=== PATIENT | female | born 1950 | race Caucasian/White ===

== ENCOUNTER 2016-06-12 17:46 | Inpatient (IN) | payer OTHER ==
[2016-06-12] MEDS ORDERED: Albuterol/Ipratropium Neb 3 ML NEB NEB ONE (18:08)
[2016-06-12] MEDS ORDERED: METHYLPREDNISOLONE 125 MG/2 ML VIAL IV ONE (18:08)
[2016-06-12 18:17] LABS: AUTOMATED BASOPHIL 0.4 % (0-2); AUTOMATED LYMPH 13.4 % (17-44); AUTOMATED MONOCYTE 7.3 % (3-10); AUTOMATED NEUTROPHIL 78.9 % (45-76); MPV 7.5 fL (7.4-10.4)
[2016-06-12 18:21] LABS: ALLEN'S TEST PASS; BEb 1.3 (+/- 2); TCO2 26.1 MMOL/L (23-27)
[2016-06-12 18:22] LABS: ABG Draw Site Left Radial; ABG Draw Tech SI
[2016-06-12] MEDS ORDERED: AZITHROMYCIN 500 MG in D5W 250 ML IV ONE (18:22)
[2016-06-12] MEDS ORDERED: CEFTRIAXONE 1 GM in D5W 100 ML IV ONE (18:22)
[2016-06-12 18:38] LABS: BLOOD UREA NITROGEN 40 MG/DL (7-17); CALCIUM 9.2 MG/DL (8.4-10.2); CALCULATED OSMOLALITY 285 MOs/Kg (270-290); CHLORIDE 102 mEq/L (98-107); CPK TOTAL WITH POSSIBLE MB 61 IU/L (30-134); GLUCOSE 135 MG/DL (70-99); SODIUM LEVEL 142 mEq/L (137-146); TOTAL PROTEIN 7.7 G/DL (6.3-8.2)
[2016-06-12 18:40] LABS: PARTIAL THROMB. TIME 21.6 SEC (22-35); PT-INR 1.1
[2016-06-12] MEDS ORDERED: Pharmacy Review for Metformin - IV Contrast Given SCH (19:00)
[2016-06-12] MEDS ORDERED: NITROGLYCERINE 2 % OINTMENT PACK TOP ONE (19:02)
[2016-06-12] MEDS ORDERED: FUROSEMIDE 40 MG/4 ML VIAL IV ONE (19:02)
--- NOTE | 2016-06-12 19:09 | EDPRACDOC ---
<Sin Flores - Last Filed: 06/12/16 20:28> - General Information Information Source: Patient Mode Of Arrival: Car - History of Present Illness Onset: SEVERAL DAYS HPI: PT PRESENTS DUE TO INCREASE IN SHOB. STATES SHE WAS SEEN BY HER PCP EARLIER AND WAS PLACED ON PROAIR, STERIODS AND AZITHROMYCIN. PT STATES SHE HAS BEEN WORSENING SINCE THAT TIME. DENIES COPD OR CHF. Shortness of Breath: Moderate Relevant History: Reports: None Cough: Reports: Non-productive Rhinorrhea: Reports: Clear Ear Symptoms: Reports: None SOB Worsens with: Reports: Exertion, Movement, Coughing, Lying Flat, Position SOB Improves with: Reports: Sitting up, Rest, Position Recently treated infections:: Reports: URI <Faina Moreira - Last Filed: 06/13/16 03:04> - General Information Chief Complaint: Dyspnea/Resp distress Stated Complaint: RESP DISTRESS Time Seen by Provider: 06/12/16 18:07 Home Medications: Home Medications Albuterol Sulfate [Proair Respiclick] 2 puff INH QID 06/12/16 Amlodipine [Norvasc] 10 mg PO QHS 06/12/16 Aspirin 325 mg PO QHS 06/12/16 Atorvastatin Calcium 40 mg PO QHS 06/12/16 Carvedilol [Coreg] 6.25 mg PO BID 06/12/16 Chlorthalidone 25 mg PO DAILY 06/12/16 Doxycycline Hyclate 100 mg PO .BID X 10D 06/12/16 Lactobacillus Combination No.4 [Probiotic] 1 cap PO QHS 06/12/16 Levothyroxine [Synthroid, Levoxyl] 50 mcg PO DAILY 06/12/16 [place]-3 Fatty Acids/Fish Oil [Fish Oil 1,000 mg Softgel] 1 cap PO QHS 06/12/16 Potassium Chloride [Klor-Con M10] 10 meq PO QHS 06/12/16 Prednisone [Sterapred Ds] 10 mg PO DIR 06/12/16 Allergies/Adverse Reactions: Allergies Allergy/AdvReac Type Severity Reaction Status Date / Time No Known Allergies Allergy Verified 06/12/16 18:03 ED Past Medical History - History Reviewed Yes Nurses notes reviewed and agree except as marked - Patient Medical History Cardiac History: Reports: Hypertension, Hypercholesterolemia Psychological History: Reports: Depression Surgical History: Reports: Cholecystectomy - Social Medical History Smoking Status: Heavy tobacco smoker (5 or more cigarettes/day or daily pipe/ cigar) <Faina Moreira W - Last Filed: 06/13/16 03:04> EDM Review of Systems - Review of Systems ROS Negative Except as Marked: Yes All systems reviewed and were negative except as marked <Faina Moreira W - Last Filed: 06/13/16 03:04> - Physical Exam Last recorded Vital Signs: Last Vital Signs Temp 97.6 F 06/12/16 18:01 Pulse 84 06/12/16 20:22 Resp 36 H 06/12/16 20:22 BP 187/80 H 06/12/16 19:22 Pulse Ox 81 L 06/12/16 20:22 Oxygen Pulse Oxygen Saturation 81 O2 Device Venturi Mask Oxygen Flow Rate 15 Fraction of Inspired Oxygen ( 55 FIO2) <Sin Flores - Last Filed: 06/12/16 20:28> - Physical Exam Constitutional: Alert Oriented to: Time, Person, Place Last recorded Vital Signs: Last Vital Signs Temp 97.6 F 06/12/16 18:01 Pulse 72 06/12/16 18:18 Resp 26 H 06/12/16 18:18 BP 204/84 H 06/12/16 18:18 Pulse Ox 89 L 06/12/16 18:18 Oxygen Pulse Oxygen Saturation 89 O2 Device Room Air Oxygen Flow Rate Fraction of Inspired Oxygen ( FIO2) - HEENT Head: Normal ( normocephalic) Eye Exam: Normal (PERRL, EOMI, Sclera white) Oropharynx: Normal (Pharynx:Moist without exudate,Gums-no swelling) Tympanic Membrane: Normal Nose: No Symptoms Reported (septum midline) Neck: Normal (FROM, trachea at midline) - Respiratory/Cardiovascular Respiratory: Diminished, Tachypnea, Wheezes Cardiovascular: Normal (RRR without murmur, gallop or rub) - GI Auscultation: Normal (NABS) Palpation: Normal (Soft,No rebound or guarding, non distended) Tenderness: Non tender Chaudhry's Sign: Negative Rectal Exam: Deferred - Musculoskeletal Back: Normal (Non-Tender) Extremities: Normal (Normal tone, Pulses 2+ No cyanosis or edema, FROM) - Integumentary Skin: Normal, Warm, Dry Lymphatics: Normal (no adenopathy) - Neurologic Memory Impaired: Normal Motor Function: Normal (Normal tone, Pulses 2+ No cyanosis or edema, FROM) Cranial Nerve: Normal (CN II-X11 intact sensation, strength 5/5) Cerebellar: Normal Mood Description: Normal Perception: Normal <Faina Moreira W - Last Filed: 06/13/16 03:04> ED SOB MDM - Re-evaluation Re-evaluation 1 Re-evaluation Time: 20:24 Re-evaluation: AFTER CT PT BECAME MUCH MORE DYSPNEIC. PLACED ON HIGH FLOW O2 AND OBTAINING REPEATED ABG. SPOKE WITH PATIENT AND FAMILY AFTER ABG RESULTS THEY WOULD LIKE TO ATTEMPT BIPAP INSTEAD OF INTUBATION BUT ARE AGREEABLE TO INTUBATION IF PATIENT DOES NOT IMPROVE. - Results Result Diagrams: 06/12/16 18:08 06/12/16 18:08 Results: WBC 14.5 xk/uL (3.8-10.8) H 06/12/16 18:08 RBC 4.37 xM/uL (4.20-5.40) 06/12/16 18:08 Hgb 11.6 g/dL (12.0-16.0) L 06/12/16 18:08 Hct 35.2 % (36-47) L 06/12/16 18:08 MCV 81 fL (81-99) 06/12/16 18:08 MCH 26.5 pg (27-32) L 06/12/16 18:08 MCHC 32.9 g/dl (33-36) L 06/12/16 18:08 RDW 16.6 % (11.5-14.5) H 06/12/16 18:08 Plt Count 283 xk/uL (130-400) 06/12/16 18:08 MPV 7.5 fL (7.4-10.4) 06/12/16 18:08 Neut % (Auto) 78.9 % (45-76) H 06/12/16 18:08 Lymph % (Auto) 13.4 % (17-44) L 06/12/16 18:08 [place] % (Auto) 7.3 % (3-10) 06/12/16 18:08 Eos % (Auto) 0.0 % (0-5) 06/12/16 18:08 Baso % (Auto) 0.4 % (0-2) 06/12/16 18:08 Absolute Neuts (auto) 11.31 xk/uL (1.7-8.2) H 06/12/16 18:08 Absolute Lymphs (auto) 1.89 xk/uL (0.65-4.75) 06/12/16 18:08 PT 11.3 SEC (9.2-11.2) H 06/12/16 18:08 INR 1.1 06/12/16 18:08 APTT 21.6 SEC (22-35) L 06/12/16 18:08 Puncture Site Left radial 06/12/16 18:17 pH 7.450 pH UNITS (7.35-7.45) 06/12/16 18:17 pCO2 36.0 mmHg (35-45) 06/12/16 18:17 pO2 50.0 mmHg (80-100) L 06/12/16 18:17 HCO3 25.0 MMOL/L (22-26) 06/12/16 18:17 Total CO2 26.1 MMOL/L (23-27) 06/12/16 18:17 Base Excess 1.3 (+/- 2) 06/12/16 18:17 FiO2 % 21% 06/12/16 18:17 Specimen Drawn By Si 06/12/16 18:17 Sodium 142 mEq/L (137-146) 06/12/16 18:08 Potassium 3.5 mEq/L (3.5-5.1) 06/12/16 18:08 Chloride 102 mEq/L (98-107) 06/12/16 18:08 Carbon Dioxide 24 mMOL/L (22-33) 06/12/16 18:08 Anion Gap 20 mEq/L (8-16) H 06/12/16 18:08 BUN 40 MG/DL (7-17) H 06/12/16 18:08 Creatinine 1.80 MG/DL (0.52-1.04) H 06/12/16 18:08 Estimated GFR (MDRD) 28 mL/min (>=60) L 06/12/16 18:08 Glucose 135 MG/DL (70-99) H 06/12/16 18:08 Calculated Osmolality 285 MOs/Kg (270-290) 06/12/16 18:08 Lactic Acid 2.2 mEq/L (0.7-2.1) H 06/12/16 18:08 Calcium 9.2 MG/DL (8.4-10.2) 06/12/16 18:08 Total Bilirubin 0.8 MG/DL (0.2-1.3) 06/12/16 18:08 AST 53 IU/L (14-36) H 06/12/16 18:08 ALT 51 IU/L (9-52) 06/12/16 18:08 Alkaline Phosphatase 132 IU/L (55-165) 06/12/16 18:08 Creatine Kinase 61 IU/L (30-134) 06/12/16 18:08 Troponin I < 0.01 ng/mL (<.04) 06/12/16 18:08 Opx-Y-Xwwnsnatroe Pept 6710 pg/mL (0-900) H 06/12/16 18:08 Total Protein 7.7 G/DL (6.3-8.2) 06/12/16 18:08 Albumin 4.5 G/DL (3.5-5.0) 06/12/16 18:08 Lab Results 06/12/16 06/12/16 06/12/16 18:17 18:08 18:08 WBC RBC Hgb Hct MCV MCH MCHC RDW Plt Count MPV Neut % (Auto) Lymph % (Auto) [place] % (Auto) Eos % (Auto) Baso % (Auto) Absolute Neuts (auto) Absolute Lymphs (auto) PT 11.3 H INR 1.1 APTT 21.6 L Puncture Site Left radial pH 7.450 pCO2 36.0 pO2 50.0 L HCO3 25.0 Total CO2 26.1 Base Excess 1.3 FiO2 % 21% Specimen Drawn By Si Sodium Potassium Chloride Carbon Dioxide Anion Gap BUN Creatinine Estimated GFR (MDRD) Glucose Calculated Osmolality Lactic Acid 2.2 H Calcium Total Bilirubin AST ALT Alkaline Phosphatase Creatine Kinase Troponin I Pwt-G-Kolzqqeieoe Pept Total Protein Albumin 06/12/16 06/12/16 18:08 18:08 WBC 14.5 H RBC 4.37 Hgb 11.6 L Hct 35.2 L MCV 81 MCH 26.5 L MCHC 32.9 L RDW 16.6 H Plt Count 283 MPV 7.5 Neut % (Auto) 78.9 H Lymph % (Auto) 13.4 L [place] % (Auto) 7.3 Eos % (Auto) 0.0 Baso % (Auto) 0.4 Absolute Neuts (auto) 11.31 H Absolute Lymphs (auto) 1.89 PT INR APTT Puncture Site pH pCO2 pO2 HCO3 Total CO2 Base Excess FiO2 % Specimen Drawn By Sodium 142 Potassium 3.5 Chloride 102 Carbon Dioxide 24 Anion Gap 20 H BUN 40 H Creatinine 1.80 H Estimated GFR (MDRD) 28 L Glucose 135 H Calculated Osmolality 285 Lactic Acid Calcium 9.2 Total Bilirubin 0.8 AST 53 H ALT 51 Alkaline Phosphatase 132 Creatine Kinase 61 Troponin I < 0.01 Hvh-B-Oiwwrkilzxu Pept 6710 H Total Protein 7.7 Albumin 4.5 <Sni Flores - Last Filed: 06/12/16 20:28> - Differential Diagnosis Differential Diagnosis: Heart Failure, Pnuemonia - Results Result Diagrams: 06/13/16 02:20 06/13/16 02:20 Results: WBC 14.5 xk/uL (3.8-10.8) H 06/12/16 18:08 RBC 4.37 xM/uL (4.20-5.40) 06/12/16 18:08 Hgb 11.6 g/dL (12.0-16.0) L 06/12/16 18:08 Hct 35.2 % (36-47) L 06/12/16 18:08 MCV 81 fL (81-99) 06/12/16 18:08 MCH 26.5 pg (27-32) L 06/12/16 18:08 MCHC 32.9 g/dl (33-36) L 06/12/16 18:08 RDW 16.6 % (11.5-14.5) H 06/12/16 18:08 Plt Count 283 xk/uL (130-400) 06/12/16 18:08 MPV 7.5 fL (7.4-10.4) 06/12/16 18:08 Neut % (Auto) 78.9 % (45-76) H 06/12/16 18:08 Lymph % (Auto) 13.4 % (17-44) L 06/12/16 18:08 [place] % (Auto) 7.3 % (3-10) 06/12/16 18:08 Eos % (Auto) 0.0 % (0-5) 01/03/17 18:08 Baso % (Auto) 0.4 % (0-2) 06/12/16 18:08 Absolute Neuts (auto) 11.31 xk/uL (1.7-8.2) H 06/12/16 18:08 Absolute Lymphs (auto) 1.89 xk/uL (0.65-4.75) 06/12/16 18:08 PT 11.3 SEC (9.2-11.2) H 06/12/16 18:08 INR 1.1 06/12/16 18:08 APTT 21.6 SEC (22-35) L 06/12/16 18:08 Puncture Site Left radial 06/12/16 18:17 pH 7.450 pH UNITS (7.35-7.45) 06/12/16 18:17 pCO2 36.0 mmHg (35-45) 06/12/16 18:17 pO2 50.0 mmHg (80-100) L 06/12/16 18:17 HCO3 25.0 MMOL/L (22-26) 06/12/16 18:17 Total CO2 26.1 MMOL/L (23-27) 06/12/16 18:17 Base Excess 1.3 (+/- 2) 06/12/16 18:17 FiO2 % 21% 06/12/16 18:17 Specimen Drawn By Si 06/12/16 18:17 Sodium 142 mEq/L (137-146) 06/12/16 18:08 Potassium 3.5 mEq/L (3.5-5.1) 06/12/16 18:08 Chloride 102 mEq/L (98-107) 06/12/16 18:08 Carbon Dioxide 24 mMOL/L (22-33) 06/12/16 18:08 Anion Gap 20 mEq/L (8-16) H 06/12/16 18:08 BUN 40 MG/DL (7-17) H 06/12/16 18:08 Creatinine 1.80 MG/DL (0.52-1.04) H 06/12/16 18:08 Estimated GFR (MDRD) 28 mL/min (>=60) L 06/12/16 18:08 Glucose 135 MG/DL (70-99) H 06/12/16 18:08 Calculated Osmolality 285 MOs/Kg (270-290) 01/03/17 18:08 Lactic Acid 2.2 mEq/L (0.7-2.1) H 06/12/16 18:08 Calcium 9.2 MG/DL (8.4-10.2) 06/12/16 18:08 Total Bilirubin 0.8 MG/DL (0.2-1.3) 06/12/16 18:08 AST 53 IU/L (14-36) H 06/12/16 18:08 ALT 51 IU/L (9-52) 06/12/16 18:08 Alkaline Phosphatase 132 IU/L (55-165) 06/12/16 18:08 Creatine Kinase 61 IU/L (30-134) 06/12/16 18:08 Troponin I < 0.01 ng/mL (<.04) 06/12/16 18:08 Csm-P-Ghomoqnymmh Pept 6710 pg/mL (0-900) H 06/12/16 18:08 Total Protein 7.7 G/DL (6.3-8.2) 06/12/16 18:08 Albumin 4.5 G/DL (3.5-5.0) 06/12/16 18:08 Lab Results 06/12/16 06/12/16 06/12/16 18:17 18:08 18:08 WBC RBC Hgb Hct MCV MCH MCHC RDW Plt Count MPV Neut % (Auto) Lymph % (Auto) [place] % (Auto) Eos % (Auto) Baso % (Auto) Absolute Neuts (auto) Absolute Lymphs (auto) PT 11.3 H INR 1.1 APTT 21.6 L Puncture Site Left radial pH 7.450 pCO2 36.0 pO2 50.0 L HCO3 25.0 Total CO2 26.1 Base Excess 1.3 FiO2 % 21% Specimen Drawn By Si Sodium Potassium Chloride Carbon Dioxide Anion Gap BUN Creatinine Estimated GFR (MDRD) Glucose Calculated Osmolality Lactic Acid 2.2 H Calcium Total Bilirubin AST ALT Alkaline Phosphatase Creatine Kinase Troponin I Zcg-Y-Lllgnfcrqpp Pept Total Protein Albumin 06/12/16 06/12/16 18:08 18:08 WBC 14.5 H RBC 4.37 Hgb 11.6 L Hct 35.2 L MCV 81 MCH 26.5 L MCHC 32.9 L RDW 16.6 H Plt Count 283 MPV 7.5 Neut % (Auto) 78.9 H Lymph % (Auto) 13.4 L [place] % (Auto) 7.3 Eos % (Auto) 0.0 Baso % (Auto) 0.4 Absolute Neuts (auto) 11.31 H Absolute Lymphs (auto) 1.89 PT INR APTT Puncture Site pH pCO2 pO2 HCO3 Total CO2 Base Excess FiO2 % Specimen Drawn By Sodium 142 Potassium 3.5 Chloride 102 Carbon Dioxide 24 Anion Gap 20 H BUN 40 H Creatinine 1.80 H Estimated GFR (MDRD) 28 L Glucose 135 H Calculated Osmolality 285 Lactic Acid Calcium 9.2 Total Bilirubin 0.8 AST 53 H ALT 51 Alkaline Phosphatase 132 Creatine Kinase 61 Troponin I < 0.01 Olf-A-Ehquvidqexx Pept 6710 H Total Protein 7.7 Albumin 4.5 - EKG EKG #1 EKG Time: 18:16 -: Yes EKG interpreted by me Rate: bpm: 77 Caro: Normal Rhythm: NSR Block: None Hypertrophy: None ST: Nonsp <Faina Moreira - Last Filed: 06/13/16 03:04> <Sin Flores - Last Filed: 06/12/16 20:28> - Departure Disposition: Admit IP To This Hospital Education/Counseling Given To: Patient Education/Counseling Given Regarding: Diagnosis, Treatment, Prognosis, Follow Up Decision to Admit Time: 21:30 Decision to admit date: 06/13/16 Decision to admit: from ED - Physician Consulted Hospitalist Time Called: 21:30 Provider Called: Arthur Ceja Time [employer] Returned Call: 21:30 <Faina Moreira - Last Filed: 06/13/16 03:04> - Departure Condition: Stable Final Diagnosis: Pleural effusion Pneumonia Qualifiers: Pneumonia type: due to unspecified organism Laterality: right Lung location: lower lobe of lung Qualified Code(s): J18.1 - Lobar pneumonia, unspecified organism
[2016-06-12 20:26] LABS: ABG Draw Site Right Radial; BEb -2.7 (+/- 2); TCO2 26.1 MMOL/L (23-27)
[2016-06-12 20:27] LABS: ALLEN'S TEST PASS
[2016-06-12 20:36] LABS: LEUKOCYTES/URINE NEG (NEGATIVE); NITRITE/URINE NEG (NEGATIVE); URINE OCCULT BLOOD NEG (NEG/TRACE); WBC/URINE 0-2 (0-5)
--- NOTE | 2016-06-12 20:40 | DIRPT ---
CLINICAL DATA: Shortness of breath and congestion, cough for 4 days. White count 14.5. Stage 3 kidney disease. Known AAA. EXAM: CT CHEST WITHOUT CONTRAST TECHNIQUE: Multidetector CT imaging of the chest was performed following the standard protocol without IV contrast. COMPARISON: Chest x-ray 06/12/2016 FINDINGS: Heart: The heart is enlarged. There are coronary artery calcifications. Mitral annulus calcification. Moderate pericardial effusion is identified, measuring 2.1 cm. Vascular structures: There is atherosclerotic calcification of the thoracic aorta. No aneurysm. Mediastinum/thyroid: Numerous small mediastinal lymph nodes are identified. Precarinal lymph node is 1.7 cm. Lack of intravenous contrast limits evaluation for hilar adenopathy. Lungs/Airways: There is a moderate right pleural effusion. Cephalization of blood flow and prominent septal markings are consistent with pulmonary edema. Minimal right lower lobe consolidation is identified, associated with air bronchograms. Left lower lobe atelectasis is present. Upper abdomen: Diminutive left kidney noted. Lowest portion of the abdominal aorta measures 3.8 cm. Chest wall/osseous structures: No acute abnormalities identified. Study quality is degraded by patient motion. IMPRESSION: 1. Cardiomegaly and coronary artery disease. 2. Moderate pericardial effusion. 3. Changes of interstitial pulmonary edema. 4. Right lower lobe infiltrate, likely infectious. 5. Probably reactive mediastinal lymph nodes. 6. Small left kidney. 7. Partially imaged abdominal aortic aneurysm. Electronically Signed By: Lorena Caicedo M.D. On: 06/12/2016 20:38
[2016-06-12] MEDS ORDERED: ACETAMINOPHEN 325 MG/TAB TABLET PO PRN (21:21)
[2016-06-12 21:27] LABS: CPK TOTAL WITH POSSIBLE MB 62 IU/L (30-134)
[2016-06-12] MEDS ORDERED: DOXYCYCLINE HYCLATE 100 MG PO SCH (21:30)
[2016-06-12] MEDS ORDERED: DOXYCYCLINE 100 MG/TAB PO SCH (22:00)
[2016-06-12] MEDS ORDERED: METHYLPREDNISOLONE 40 MG/1 ML VIAL IV SCH (22:00)
[2016-06-12] MEDS ORDERED: Pharmacy Order Set Alert SCH (22:00)
--- NOTE | 2016-06-12 22:04 | HISTPHYS ---
- Chief Complaint Dyspnea, shortness of breath and cough - History of Present Illness This is a pleasant 65-year-old female with a known history of coronary artery disease was being admitted to the hospital [facility] due to shortness of breath. She tells me that she was in her usual state of health until about 4 days ago, when she started to develop shortness of breath. She was seen at urgent care yesterday and started on a course of p.o. antibiotics. This is not help, she presented to the hospital [facility] with shortness of breath. She has also been noticing lower extremity edema for the last several days. She was out of town on a vacation, and may have had a lot of salt and fluid intake. Denies any fevers, chills, chest pain, abdominal pain, nausea, vomiting or diarrhea. Here in the emergency department, she had CT of the chest which is consistent with interstitial edema and right lower lobe consolidation. - Medical History Cardiac History: Reports: Hypertension, Hypercholesterolemia Psychological History: Reports: Depression - Surgical History Reports: Cholecystectomy - Medictions/Allergies Allergies No Known Allergies Allergy (Verified 06/12/16 18:03) Home Medications Albuterol Sulfate [Proair Respiclick] 2 puff INH QID 06/12/16 Amlodipine [Norvasc] 10 mg PO QHS 06/12/16 Aspirin 325 mg PO QHS 06/12/16 Atorvastatin Calcium 40 mg PO QHS 06/12/16 Carvedilol [Coreg] 6.25 mg PO BID 06/12/16 Chlorthalidone 25 mg PO DAILY 06/12/16 Doxycycline Hyclate 100 mg PO .BID X 10D 06/12/16 Lactobacillus Combination No.4 [Probiotic] 1 cap PO QHS 06/12/16 Levothyroxine [Synthroid, Levoxyl] 50 mcg PO DAILY 06/12/16 [place]-3 Fatty Acids/Fish Oil [Fish Oil 1,000 mg Softgel] 1 cap PO QHS 06/12/16 Potassium Chloride [Klor-Con M10] 10 meq PO QHS 06/12/16 Prednisone [Sterapred Ds] 10 mg PO DIR 06/12/16 - Social History Smoking Status: Heavy tobacco smoker (5 or more cigarettes/day or daily pipe/ cigar) - Review of Systems Yes All systems reviewed and were negative except as marked (And as mentioned in history of present illness above.) - Physical Exam Vital Signs: Initial Vitals Temperature 97.6 F 06/12/16 18:01 Pulse Rate 74 06/12/16 18:01 Respiratory Rate 32 H 06/12/16 18:01 Blood Pressure 208/81 H 06/12/16 18:01 Pulse Oxygen Saturation 88 L 06/12/16 18:01 Constitutional: Alert (Awake, Fully oriented, well appearing. No apparent distress), Distress Oriented to: Time, Person, Place Exam: Breathing comfortably on BiPAP. - HEENT Head: Normal (normocephalic,atraumatic, trachea midline) Eye: Normal (EOMI, Sclera white) Oropharynx: Normal (moist) Nose: No Symptoms Reported (without discharge or bleeding) Respiratory: Diminished, Rales, Other (Crackles at bilateral bases.) Cardiovascular: Normal (RRR, no murmurs, rubs or gallops) - GI Palpation: Normal (soft, non distended and nontender) - Musculoskeletal Extremities: Normal (normal tone, no cyanosis or edema) - Integumentary Skin: Normal (no rashes or lesions) - Neurologic Cranial Nerve: Normal (CN II-XII intact) Mood Description: Normal (Fully oriented and appropiate affect) - Focused CV Perfusion Exam Vital Signs: Last Vital Signs Temp 97.6 F 06/12/16 18:01 Pulse 69 06/12/16 20:51 Resp 24 06/12/16 20:51 BP 187/80 H 06/12/16 20:51 Pulse Ox 100 06/12/16 20:51 - Lab Results Laboratory Tests 06/12/16 06/12/16 06/12/16 18:08 18:08 18:08 WBC 14.5 H Hgb 11.6 L INR 1.1 pH pCO2 pO2 Potassium 3.5 BUN 40 H Creatinine 1.80 H AST 53 H ALT 51 Troponin I < 0.01 Qss-S-Wpjswqphbkj Pept 6710 H 06/12/16 20:24 WBC Hgb INR pH 7.290 L pCO2 51.0 H pO2 48.0 L* Potassium BUN Creatinine AST ALT Troponin I Qyf-W-Fclubgyibmd Pept - Diagnostic Findings CT chest: 1. Cardiomegaly and coronary artery disease. 2. Moderate pericardial effusion. 3. Changes of interstitial pulmonary edema. 4. Right lower lobe infiltrate, likely infectious. 5. Probably reactive mediastinal lymph nodes. 6. Small left kidney. 7. Partially imaged abdominal aortic aneurysm. - Assessment (1) Acute exacerbation of CHF (congestive heart failure) I50.9 - HEART FAILURE, UNSPECIFIED Acute Patient denies prior CHF diagnosis. Admit to hospital due to fluid overload and CHF exacerbation. She is significantly hypoxic. Doing well on BiPAP now. Aggressive IV diuresis, low -sodium diet. CHF teaching. Will check echo in the morning for EF evaluation. Continue aspirin, home beta-kaylan and start statin. Consider CRUZ- inhibitor. (2) CKD (chronic kidney disease) N18.9 - CHRONIC KIDNEY DISEASE, UNSPECIFIED Acute (3) Pleural effusion J90 - PLEURAL EFFUSION, NOT ELSEWHERE CLASSIFIED Acute Parapneumonic effusion, if not improving with IV diuresis she may need thoracentesis. Consider surgical consult for this. (4) Pneumonia J18.9 - PNEUMONIA, UNSPECIFIED ORGANISM Acute Qualifiers: Pneumonia type: due to unspecified organism Laterality: right Lung location: lower lobe of lung Qualified Code(s): J18.1 - Lobar pneumonia, unspecified organism Lower lobe infiltrate seen on CT scan in the ER tonight. Treat empirically with IV Rocephin and azithromycin for community-acquired pneumonia. Pneumonia evidence based care order set has been utilized, supplemental O2 per respiratory therapy. Currently on BiPAP, wean as tolerated. (5) Respiratory failure with hypoxia J96.91 - RESPIRATORY FAILURE, UNSPECIFIED WITH HYPOXIA Acute Due to pneumonia and CHF. Case Care Discussed with: Patient, Nursing Staff Total Time: 65
[2016-06-12] MEDS ORDERED: Vaccine Screening Complete SCH (23:00)
[2016-06-12] MEDS: ENOXAPARIN 40 MG/0.4 ML PFS SQ SCH (23:10)
[2016-06-13] MEDS ORDERED: METHYLPREDNISOLONE 125 MG/2 ML VIAL IV SCH
[2016-06-13 02:37] LABS: MPV 7.5 fL (7.4-10.4)
[2016-06-13 02:47] LABS: BLOOD UREA NITROGEN 42 MG/DL (7-17); CALCIUM 8.7 MG/DL (8.4-10.2); CALCULATED OSMOLALITY 282 MOs/Kg (270-290); CHLORIDE 99 mEq/L (98-107); GLUCOSE 156 MG/DL (70-99); SODIUM LEVEL 139 mEq/L (137-146)
[2016-06-13] MEDS: FUROSEMIDE 40 MG/4 ML VIAL IV SCH ×3 (03:48→19:38)
[2016-06-13] MEDS: hydrALAZINE 20 MG/ML VIAL IV PRN ×2 (06:00→17:58)
[2016-06-13] MEDS: LEVOTHYROXINE 50 MCG (0.05 MG) TAB PO SCH (08:54)
[2016-06-13] MEDS: CARVEDILOL 6.25 MG TAB PO SCH ×2 (08:54→19:39)
[2016-06-13] MEDS: CHLORTHALIDONE 25 MG TAB PO SCH (08:54)
[2016-06-13] MEDS ORDERED: PROBIOTIC BLEND TAB PO SCH (12:00)
--- NOTE | 2016-06-13 15:16 | GENMEDPROG ---
Chief Complaint: sob better Notes Reviewed: Yes Events from last night noted and discussed with Clinical Staff Current Medication List: Reviewed DVT Prophylaxis: Yes - Physical Examination Vital Signs and I&O: Last Vital Signs Temp 98.6 F 06/13/16 11:59 Pulse 79 06/13/16 12:57 Resp 20 06/13/16 11:59 BP 186/77 H 06/13/16 11:59 Pulse Ox 95 06/13/16 11:59 Oxygen Pulse Oxygen Saturation 95 O2 Device BiPAP Oxygen Flow Rate Fraction of Inspired Oxygen ( 90 FIO2) Intake & Output 06/10/16 06/11/16 06/12/16 06/13/16 23:59 23:59 23:59 23:59 Intake Total 350 480 Output Total 2300 Balance 350 -1820 Patient's weight 88.541 kg 88.405 kg General: Alert, Oriented x3, No acute distress, Well appearing, Well nourished HEENT: Normal (Normocephalic, atraumatic;EOMI.Sclera white, Nares patent, without discharge or bleeding. No oropharyngeal lesions or erythema. Mucous membranes are dry.) Neck: Non-tender, Full range of motion, Normal Trachea alignment, Normal inspection (No cervical lymphadenopathy. No supraclavicular lymphadenopathy.), No Masses palpable, Supple Lymphatics: Normal (no adenopathy) Respiratory: Diminished, Tachypnea, Wheezes Cardiovascular: Regular rate and rhythm (No bradycardia or tachycardia), Normal S1, No Gallops,Rubs/Murmurs, Normal S2, Good Pedal Pulses (DP pulses 2+ bilaterally) GI: Normal bowel sounds (normal active sounds), Soft (non-distended), Non tender , No hepatospenomegaly, No masses Extremities/Musculoskeletal: Normal pulses (DP pulses 2+ bilaterally), Edema (3+ ) Skin: Warm,Dry and Intact, No rashes, No significant lesion Neurological: Strength at 5/5 X4 ext (Motor 5/5 throughout.), Normal tone, Cranial nerves 3-12 NL ( 2-12 grossly intact.) Psych/Mental Status: Appropriate, Normal Affect Lab/DI/Studies Reviewed: 06/13/16 02:20 06/13/16 02:20 Laboratory Results - last 24 hr 06/12/16 06/12/16 06/12/16 18:08 18:08 18:08 WBC 14.5 H RBC 4.37 Hgb 11.6 L Hct 35.2 L MCV 81 MCH 26.5 L MCHC 32.9 L RDW 16.6 H Plt Count 283 MPV 7.5 Neut % (Auto) 78.9 H Lymph % (Auto) 13.4 L [place] % (Auto) 7.3 Eos % (Auto) 0.0 Baso % (Auto) 0.4 Absolute Neuts (auto) 11.31 H Absolute Lymphs (auto) 1.89 PT 11.3 H INR 1.1 APTT 21.6 L Puncture Site pH pCO2 pO2 HCO3 Total CO2 Base Excess FiO2 % Specimen Drawn By Sodium 142 Potassium 3.5 Chloride 102 Carbon Dioxide 24 Anion Gap 20 H BUN 40 H Creatinine 1.80 H Estimated GFR (MDRD) 28 L Glucose 135 H Calculated Osmolality 285 Lactic Acid Calcium 9.2 Magnesium Total Bilirubin 0.8 AST 53 H ALT 51 Alkaline Phosphatase 132 Creatine Kinase 61 Troponin I < 0.01 Jjo-I-Blpmtxpmcbu Pept 6710 H Total Protein 7.7 Albumin 4.5 Triglycerides Cholesterol LDL Cholesterol, Calc VLDL Cholesterol, Calc HDL Cholesterol Cholesterol/HDL Ratio Urine Color Urine Clarity Urine pH Ur Specific [place] Urine Protein Urine Glucose (UA) Urine Ketones Urine Occult Blood Urine Nitrite Urine Bilirubin Urine Urobilinogen Ur Leukocyte Esterase Urine WBC Ur Epithelial Cells Urine Mucus 06/12/16 06/12/16 06/12/16 18:08 18:17 20:15 WBC RBC Hgb Hct MCV MCH MCHC RDW Plt Count MPV Neut % (Auto) Lymph % (Auto) [place] % (Auto) Eos % (Auto) Baso % (Auto) Absolute Neuts (auto) Absolute Lymphs (auto) PT INR APTT Puncture Site Left radial pH 7.450 pCO2 36.0 pO2 50.0 L HCO3 25.0 Total CO2 26.1 Base Excess 1.3 FiO2 % 21% Specimen Drawn By Si Sodium Potassium Chloride Carbon Dioxide Anion Gap BUN Creatinine Estimated GFR (MDRD) Glucose Calculated Osmolality Lactic Acid 2.2 H Calcium Magnesium Total Bilirubin AST ALT Alkaline Phosphatase Creatine Kinase Troponin I Ova-T-Adwncgdnmcu Pept Total Protein Albumin Triglycerides Cholesterol LDL Cholesterol, Calc VLDL Cholesterol, Calc HDL Cholesterol Cholesterol/HDL Ratio Urine Color Yellow Urine Clarity Clear Urine pH 6.0 Ur Specific [place] 1.010 Urine Protein Neg Urine Glucose (UA) Neg Urine Ketones Neg Urine Occult Blood Neg Urine Nitrite Neg Urine Bilirubin Neg Urine Urobilinogen <2.0 Ur Leukocyte Esterase Neg Urine WBC 0-2 Ur Epithelial Cells 1+ Urine Mucus Occ 06/12/16 06/12/16 06/12/16 20:24 20:50 23:00 WBC RBC Hgb Hct MCV MCH MCHC RDW Plt Count MPV Neut % (Auto) Lymph % (Auto) [place] % (Auto) Eos % (Auto) Baso % (Auto) Absolute Neuts (auto) Absolute Lymphs (auto) PT INR APTT Puncture Site Right radial pH 7.290 L pCO2 51.0 H pO2 48.0 L* HCO3 24.5 Total CO2 26.1 Base Excess -2.7 L FiO2 % 55% venti mask Specimen Drawn By Stana Sodium Potassium Chloride Carbon Dioxide Anion Gap BUN Creatinine Estimated GFR (MDRD) Glucose Calculated Osmolality Lactic Acid 1.5 Calcium Magnesium Total Bilirubin AST ALT Alkaline Phosphatase Creatine Kinase 62 Troponin I < 0.01 Jtq-J-Iubhecvzpvn Pept Total Protein Albumin Triglycerides Cholesterol LDL Cholesterol, Calc VLDL Cholesterol, Calc HDL Cholesterol Cholesterol/HDL Ratio Urine Color Urine Clarity Urine pH Ur Specific [place] Urine Protein Urine Glucose (UA) Urine Ketones Urine Occult Blood Urine Nitrite Urine Bilirubin Urine Urobilinogen Ur Leukocyte Esterase Urine WBC Ur Epithelial Cells Urine Mucus 06/13/16 06/13/16 06/13/16 02:20 02:20 02:20 WBC 11.1 H RBC 3.92 L Hgb 10.4 L D Hct 31.0 L MCV 79 L MCH 26.6 L MCHC 33.6 RDW 16.3 H Plt Count 261 MPV 7.5 Neut % (Auto) Lymph % (Auto) [place] % (Auto) Eos % (Auto) Baso % (Auto) Absolute Neuts (auto) Absolute Lymphs (auto) PT INR APTT Puncture Site pH pCO2 pO2 HCO3 Total CO2 Base Excess FiO2 % Specimen Drawn By Sodium 139 Potassium 3.4 L Chloride 99 Carbon Dioxide 28 Anion Gap 15 BUN 42 H Creatinine 1.80 H Estimated GFR (MDRD) 28 L Glucose 156 H Calculated Osmolality 282 Lactic Acid Calcium 8.7 Magnesium 1.90 Total Bilirubin AST ALT Alkaline Phosphatase Creatine Kinase Troponin I 0.01 Gua-S-Ogcpbnxpili Pept Total Protein Albumin Triglycerides 110 Cholesterol 135 LDL Cholesterol, Calc 49.0 VLDL Cholesterol, Calc 22.0 HDL Cholesterol 64.0 Cholesterol/HDL Ratio 2.1 Urine Color Urine Clarity Urine pH Ur Specific [place] Urine Protein Urine Glucose (UA) Urine Ketones Urine Occult Blood Urine Nitrite Urine Bilirubin Urine Urobilinogen Ur Leukocyte Esterase Urine WBC Ur Epithelial Cells Urine Mucus - Assessment (1) Acute exacerbation of CHF (congestive heart failure) Acute I50.9 - HEART FAILURE, UNSPECIFIED Qualifiers: Congestive heart failure type: systolic Qualified Code(s): I50.23 - Acute on chronic systolic (congestive) heart failure Comment/Plan: Patient denies prior CHF diagnosis. Admit to hospital due to fluid overload and CHF exacerbation. She is significantly hypoxic. Doing well on BiPAP now. Aggressive IV diuresis, low-sodium diet. CHF teaching. Echo still pending for EF evaluation. Continue aspirin, home beta-kaylan and start statin. Consider CRUZ-inhibitor. (2) CKD (chronic kidney disease) Acute N18.9 - CHRONIC KIDNEY DISEASE, UNSPECIFIED Qualifiers: Chronic kidney disease stage: stage 3 (moderate) Qualified Code(s): N18.3 - Chronic kidney disease, stage 3 (moderate) (3) Pneumonia Acute J18.9 - PNEUMONIA, UNSPECIFIED ORGANISM Qualifiers: Pneumonia type: due to unspecified organism Laterality: right Lung location: lower lobe of lung Qualified Code(s): J18.1 - Lobar pneumonia, unspecified organism Comment/Plan: Lower lobe infiltrate seen on CT scan in the ER tonight. Treat empirically with IV Rocephin and azithromycin for community-acquired pneumonia. Pneumonia evidence based care order set has been utilized, supplemental O2 per respiratory therapy. (4) Respiratory failure with hypoxia Acute J96.91 - RESPIRATORY FAILURE, UNSPECIFIED WITH HYPOXIA Qualifiers: Chronicity: acute Qualified Code(s): J96.01 - Acute respiratory failure with hypoxia Comment/Plan: Due to pneumonia and CHF. (5) Tobacco abuse Acute Z72.0 - TOBACCO USE Comment/Plan: quit smoking X 1 month Case Care Discussed with: Patient, Nursing Staff, Resource Management Education/Counseling Given To: Patient, Family Member Education/Counseling Given Regarding: Diagnosis, Treatment Total Time: 39 min plus extra 10 minutes discussing smoking cessation. Critical Care: No Code: 83416 (12+) (407)
[2016-06-13] MEDS: ENOXAPARIN 40 MG/0.4 ML PFS SQ SCH (17:57)
[2016-06-13] MEDS: CEFTRIAXONE 1 GM in D5W 100 ML IV SCH (17:58)
[2016-06-13] MEDS ORDERED: CEFTRIAXONE 1 GM in D5W 100 ML IV SCH (18:00)
[2016-06-13] MEDS: AZITHROMYCIN 500 MG in D5W 250 ML IV SCH (19:38)
[2016-06-13] MEDS: ATORVASTATIN 40 MG TAB PO SCH (19:39)
[2016-06-13] MEDS: ASPIRIN 325 MG TAB PO SCH (19:39)
[2016-06-13] MEDS: AMLODIPINE 10 MG TAB PO SCH (19:39)
[2016-06-13] MEDS ORDERED: AZITHROMYCIN 500 MG in D5W 250 ML IV SCH (20:00)
[2016-06-13] MEDS ORDERED: LACTOBACILLUS COMBINATION NO 4 PO SCH (21:00)
[2016-06-13] MEDS ORDERED: POTASSIUM CHLORIDE 10 MEQ TABLET PO SCH (21:00)
[2016-06-13] MEDS ORDERED: POTASSIUM CHLORIDE 20 MEQ TAB PO SCH (21:00)
[2016-06-14] MEDS: FUROSEMIDE 40 MG/4 ML VIAL IV SCH (03:40)
[2016-06-14 04:36] LABS: MPV 7.4 fL (7.4-10.4)
[2016-06-14 05:06] LABS: BLOOD UREA NITROGEN 55 MG/DL (7-17); CALCIUM 8.4 MG/DL (8.4-10.2); CALCULATED OSMOLALITY 283 MOs/Kg (270-290); CHLORIDE 95 mEq/L (98-107); GLUCOSE 106 MG/DL (70-99); SODIUM LEVEL 139 mEq/L (137-146)
[2016-06-14] MEDS ORDERED: KCl 10 mEq/100 ml Premix (Run) 10 MEQ/100 ML RTU IV ONE (10:00)
[2016-06-14] MEDS: POTASSIUM CHLORIDE 20 MEQ TAB PO SCH ×3 (10:04→15:11)
[2016-06-14] MEDS: LEVOTHYROXINE 50 MCG (0.05 MG) TAB PO SCH (10:04)
[2016-06-14] MEDS: CHLORTHALIDONE 25 MG TAB PO SCH (10:05)
[2016-06-14] MEDS: CARVEDILOL 6.25 MG TAB PO SCH ×2 (10:05→20:06)
--- NOTE | 2016-06-14 10:49 | GENMEDPROG ---
Chief Complaint: sob better Notes Reviewed: Yes Events from last night noted and discussed with Clinical Staff Current Medication List: Reviewed Currently: Reports: FISH, SOB DVT Prophylaxis: Yes - Physical Examination Vital Signs and I&O: Last Vital Signs Temp 97.9 F 06/14/16 07:55 Pulse 75 06/14/16 10:12 Resp 20 06/14/16 07:55 BP 137/64 06/14/16 07:55 Pulse Ox 95 06/14/16 08:00 Oxygen Pulse Oxygen Saturation 95 O2 Device Nasal Cannula Oxygen Flow Rate 2 Fraction of Inspired Oxygen ( 30 FIO2) Intake & Output 06/11/16 06/12/16 06/13/16 06/14/16 23:59 23:59 23:59 23:59 Intake Total 350 206 708 Output Total 7039 7346 Balance 700 -3759 -3086 Patient's weight 88.541 kg 88.405 kg 88.479 kg General: Alert, Oriented x3, No acute distress, Well appearing, Well nourished HEENT: Normal (Normocephalic, atraumatic;EOMI.Sclera white, Nares patent, without discharge or bleeding. No oropharyngeal lesions or erythema. Mucous membranes are dry.) Neck: Non-tender, Full range of motion, Normal Trachea alignment, Normal inspection (No cervical lymphadenopathy. No supraclavicular lymphadenopathy.), No Masses palpable, Supple Lymphatics: Normal (no adenopathy) Respiratory: Diminished, Tachypnea, Wheezes Cardiovascular: Regular rate and rhythm (No bradycardia or tachycardia), Normal S1, No Gallops,Rubs/Murmurs, Normal S2, Good Pedal Pulses (DP pulses 2+ bilaterally) GI: Normal bowel sounds (normal active sounds), Soft (non-distended), Non tender , No hepatospenomegaly, No masses Extremities/Musculoskeletal: Normal pulses (DP pulses 2+ bilaterally), Edema (3+ ) Skin: Warm,Dry and Intact, No rashes, No significant lesion Neurological: Strength at 5/5 X4 ext (Motor 5/5 throughout.), Normal tone, Cranial nerves 3-12 NL ( 2-12 grossly intact.) Psych/Mental Status: Appropriate, Normal Affect Lab/DI/Studies Reviewed: 06/14/16 04:25 06/14/16 04:25 Laboratory Results - last 24 hr 06/14/16 06/14/16 04:25 04:25 WBC 10.3 RBC 3.79 L Hgb 10.3 L Hct 30.0 L MCV 79 L MCH 27.2 MCHC 34.3 RDW 16.4 H Plt Count 242 MPV 7.4 Sodium 139 Potassium 2.9 L Chloride 95 L Carbon Dioxide 31 Anion Gap 16 BUN 55 H Creatinine 2.00 H Estimated GFR (MDRD) 25 L Glucose 106 H Calculated Osmolality 283 Calcium 8.4 - Assessment (1) Acute exacerbation of CHF (congestive heart failure) Acute I50.9 - HEART FAILURE, UNSPECIFIED Qualifiers: Congestive heart failure type: systolic Qualified Code(s): I50.23 - Acute on chronic systolic (congestive) heart failure Comment/Plan: Patient denies prior CHF diagnosis. Admit to hospital due to fluid overload and CHF exacerbation. She is significantly hypoxic. Doing well on BiPAP now. Aggressive IV diuresis, low-sodium diet. CHF teaching. Echo still pending for EF evaluation. Continue aspirin, home beta-kaylan and start statin. Diureses 4.4 l fluid. (2) CKD (chronic kidney disease) Acute N18.9 - CHRONIC KIDNEY DISEASE, UNSPECIFIED Qualifiers: Chronic kidney disease stage: stage 3 (moderate) Qualified Code(s): N18.3 - Chronic kidney disease, stage 3 (moderate) Comment/Plan: has only 1 kidney that works cr 2.0. (3) Pneumonia Acute J18.9 - PNEUMONIA, UNSPECIFIED ORGANISM Qualifiers: Pneumonia type: due to unspecified organism Laterality: right Lung location: lower lobe of lung Qualified Code(s): J18.1 - Lobar pneumonia, unspecified organism Comment/Plan: Lower [facility] Treat empirically with IV Rocephin and azithromycin for community-acquired pneumonia. Pneumonia evidence based care order set has been utilized, supplemental O2 per respiratory therapy. (4) Tobacco abuse Acute Z72.0 - TOBACCO USE Comment/Plan: quit smoking X 1 month (5) Respiratory failure with hypoxia Acute J96.91 - RESPIRATORY FAILURE, UNSPECIFIED WITH HYPOXIA Qualifiers: Chronicity: acute Qualified Code(s): J96.01 - Acute respiratory failure with hypoxia Comment/Plan: Due to pneumonia and CHF. Case Care Discussed with: Patient, Nursing Staff Education/Counseling Given To: Patient Education/Counseling Given Regarding: Diagnosis Total Time: 37 min Critical Care: No Code: 54126 (12+)
--- NOTE | 2016-06-14 12:00 | CAPUECHO ---
INDICATION: CHF HEIGHT: 157.5 cm (5 ft 2.0 in) WEIGHT: 90.7 kg (200.0 lbs) BP: 182/78 BSA: 1.378280 m MEASUREMENTS 2D RVIDd: 3.1 cm LVOT Diam: 2.0 cm LA Diam: 4.3 cm EF Biplane: 67.42 % LAESV MOD A4C: 70.1 ml LAESV MOD A2C: 65.3 ml LAESV Index (A-L): 37.23 ml/m M-MODE IVSd: 1.1 cm LVIDd: 5.9 cm LVPWd: 1.1 cm LVIDs: 3.6 cm EF(Teich): 68 % Ao Diam: 2.9 cm LA Diam: 4.4 cm DOPPLER MV E Bogdan: 1.67 m/s MV A Bogdan: 1.31 m/s MV PHT: 80.33 ms MVA By PHT: 2.74 cm LVOT Vmax: 1.24 m/s AV Vmax: 1.82 m/s BURAK Vmax, Pt: 2.21 cm TR Vmax: 2.46 m/s TR maxP mmHg RVSP: 40.84 mmHg FINDINGS ------- Procedure:2D images, m-mode, color and spectral Doppler were obtained and reviewed. ECG rhythm:Sinus rhythm. Study quality:This was a technically adequate study. Left Ventricle:The left ventricle displays borderline concentric hypertrophy, normal contraction thr oughout, EF 68%. Grade III diastolic dysfunction (pseudonormalization) Right Ventricle:The right ventricle is normal in size and function. Left Atrium:The left atrium is moderately dilated. Right Atrium:The right atrium is normal in size and function. Septum intact. Aortic Valve:The aortic valve is trileaflet with mild aortic valve sclerosis, good mobility. No re gurgitation. Mitral Valve:Mild nodular mitral annular calcification and posterior leaflet thickening present. 2 + mild/mod mitral regurgitation is present. Tricuspid Valve:The tricuspid valve appears structurally normal. Mild tricuspid regurgitation pres ent. The right ventricular systolic pressure, as measured by Doppler, is 41mmHg. Pulmonic Valve:The pulmonic valve is normal. There is no pulmonic regurgitation present. Aorta:The aortic root is of normal caliber; the ascending aorta and aortic arch not well visdualize d. IVC:Normal inferior vena cava without normal inspiratory collapse, patient on Bi-PAP machine. Pericardium:There is a small, generalized pericardial effusion present, no signs of tamponade. CONCLUSIONS 1. borderline concentric left ventricularl hypertrophy with normal systolic function, EF 68%, but Grade III diastolic dysfunction (impaired relaxation) 2. mitral annular calcificaiton with 2+ mil d/mod mitral regurg, moderate left atrial dilatation 3. normal right heart size/function, mild TR , mild elevation of pulm artery pressure suggested 4. mild aortic sclerosis. Electronically Signed By: Celestino Dasilva MD-- Electronically Signed On: 11:46:04
[2016-06-14] MEDS: SPIRONOLACTONE 25 MG TAB PO SCH ×2 (12:22→13:33)
[2016-06-14] MEDS: PROBIOTIC BLEND TAB PO SCH ×2 (12:23→17:09)
--- NOTE | 2016-06-14 12:34 | DIRPT ---
CLINICAL DATA: Congestive heart failure EXAM: CHEST 2 VIEW COMPARISON: 06/12/2016 FINDINGS: Cardiomegaly again noted. Central mild vascular congestion without convincing pulmonary edema. There is small right pleural effusion with streaky right basilar atelectasis or infiltrate. Atherosclerotic calcifications of thoracic aorta. Mild degenerative changes thoracic spine. IMPRESSION: Central mild vascular congestion. No convincing pulmonary edema. Small right pleural effusion with streaky right basilar atelectasis or infiltrate. Electronically Signed By: Trae Wong M.D. On: 06/14/2016 12:31
[2016-06-14 16:57] LABS: BLOOD UREA NITROGEN 60 MG/DL (7-17); CALCIUM 8.8 MG/DL (8.4-10.2); CALCULATED OSMOLALITY 285 MOs/Kg (270-290); CHLORIDE 96 mEq/L (98-107); GLUCOSE 89 MG/DL (70-99); SODIUM LEVEL 140 mEq/L (137-146)
[2016-06-14] MEDS: FUROSEMIDE 40 MG TAB PO SCH (17:09)
[2016-06-14] MEDS: CEFTRIAXONE 1 GM in D5W 100 ML IV SCH (17:09)
[2016-06-14] MEDS ORDERED: ENOXAPARIN 30 MG/0.3 ML PFS SQ SCH (18:00)
[2016-06-14] MEDS: AMLODIPINE 10 MG TAB PO SCH (20:06)
[2016-06-14] MEDS: ASPIRIN 325 MG TAB PO SCH (20:06)
[2016-06-14] MEDS: ATORVASTATIN 40 MG TAB PO SCH (20:06)
[2016-06-14] MEDS: AZITHROMYCIN 500 MG in D5W 250 ML IV SCH (20:07)
[2016-06-14] MEDS: hydrALAZINE 20 MG/ML VIAL IV PRN (23:37)
[2016-06-15 05:36] LABS: BLOOD UREA NITROGEN 52 MG/DL (7-17); CALCIUM 9.1 MG/DL (8.4-10.2); CALCULATED OSMOLALITY 285 MOs/Kg (270-290); CHLORIDE 96 mEq/L (98-107); GLUCOSE 97 MG/DL (70-99); SODIUM LEVEL 141 mEq/L (137-146)
[2016-06-15] MEDS: SPIRONOLACTONE 25 MG TAB PO SCH (08:00)
[2016-06-15] MEDS: FUROSEMIDE 40 MG TAB PO SCH ×2 (08:00→16:57)
[2016-06-15] MEDS: CARVEDILOL 6.25 MG TAB PO SCH (08:00)
[2016-06-15] MEDS: LEVOTHYROXINE 50 MCG (0.05 MG) TAB PO SCH (08:00)
[2016-06-15] MEDS ORDERED: CARVEDILOL 6.25 MG TAB PO ONE (10:00)
--- NOTE | 2016-06-15 10:02 | PCM.DCS92 ---
- Final/Secondary Discharge Diagnosis (1) Acute exacerbation of CHF (congestive heart failure) Acute I50.9 - HEART FAILURE, UNSPECIFIED Present on Admission: Yes systolic I50.23 - Acute on chronic systolic (congestive) heart failure Comment: Patient denies prior CHF diagnosis. Admit to hospital due to fluid overload and CHF exacerbation. She is significantly hypoxic. Doing well on BiPAP now. Aggressive IV diuresis, low-sodium diet. CHF teaching. Echo still pending for EF evaluation. Continue aspirin, home beta-kaylan and start statin. Diureses 5l fluid. (2) CKD (chronic kidney disease) Acute N18.9 - CHRONIC KIDNEY DISEASE, UNSPECIFIED stage 3 (moderate) N18.3 - Chronic kidney disease, stage 3 (moderate) Comment: has only 1 kidney that works cr 2.0. (3) Pneumonia Acute J18.9 - PNEUMONIA, UNSPECIFIED ORGANISM Present on Admission: Yes due to unspecified organism right lower lobe of lung J18.1 - Lobar pneumonia, unspecified organism Comment: Lower lobe infiltrate seen on CT scan in the ER tonight. Treat empirically with IV Rocephin and azithromycin for community-acquired pneumonia. Pneumonia evidence based care order set has been utilized, supplemental O2 per respiratory therapy. (4) Tobacco abuse Acute Z72.0 - TOBACCO USE Comment: quit smoking X 1 month (5) Respiratory failure with hypoxia Acute J96.91 - RESPIRATORY FAILURE, UNSPECIFIED WITH HYPOXIA acute J96.01 - Acute respiratory failure with hypoxia Comment: Due to pneumonia and CHF. Discharge Disposition: Discharge w/ Home Health Discharge Condition: Stable Cognitive Discharge Status: Unimpaired Fuctional Discharge Status: Independent Physician Follow up/Referrals: Juana Richards NP [Primary Care Provider] - One Week New Prescriptions: Albuterol Sulfate [Proair Respiclick] 2 puff INH QID #1 aer.pow.ba Azithromycin [Zithromax Tri-Arjun] 500 mg PO DAILY #3 tablet Carvedilol [Coreg] 12.5 mg PO BID #60 tablet Cefdinir [Omnicef] 300 mg PO BID #10 capsule Furosemide [Lasix] 80 mg PO DAILY #30 tablet Lactobacillus Combination No.4 [Probiotic] 1 cap PO QHS #30 capsule Spironolactone [Aldactone] 25 mg PO DAILY #30 tablet Discharge Home Medication List Amlodipine [Norvasc] 10 mg PO QHS 06/12/16 [History Confirmed 06/12/16 Last Taken 06/11/16] Aspirin 325 mg PO QHS 06/12/16 [History Confirmed 06/12/16 Last Taken 06/11/16] Atorvastatin Calcium 40 mg PO QHS 06/12/16 [History Confirmed 06/12/16 Last Taken 06/11/16] Levothyroxine [Synthroid, Levoxyl] 50 mcg PO DAILY 06/12/16 [History Confirmed 06/12/16 Last Taken 06/12/16] Lynn-3 Fatty Acids/Fish Oil [Fish Oil 1,000 mg Softgel] 1 cap PO QHS 06/12/16 [ History Confirmed 06/12/16 Last Taken 06/11/16] Potassium Chloride [Klor-Con M10] 10 meq PO QHS 06/12/16 [History Confirmed 08/24 Last Taken 06/11/16] Prednisone [Sterapred Ds] 10 mg PO DIR 06/12/16 [History Confirmed 06/12/16 Last Taken 06/11/16] Albuterol Sulfate [Proair Respiclick] 2 puff INH QID #1 aer.pow.ba 06/15/16 [Rx Last Taken Unknown] Azithromycin [Zithromax Tri-Arjun] 500 mg PO DAILY #3 tablet 06/15/16 [Rx Last Taken Unknown] Carvedilol [Coreg] 12.5 mg PO BID #60 tablet 06/15/16 [Rx Last Taken Unknown] Cefdinir [Omnicef] 300 mg PO BID #10 capsule 06/15/16 [Rx Last Taken Unknown] Furosemide [Lasix] 80 mg PO DAILY #30 tablet 06/15/16 [Rx Last Taken Unknown] Lactobacillus Combination No.4 [Probiotic] 1 cap PO QHS #30 capsule 06/15/16 [ Rx Last Taken Unknown] Spironolactone [Aldactone] 25 mg PO DAILY #30 tablet 06/15/16 [Rx Last Taken Unknown] 06/15/16 04:50 06/15/16 04:50 Laboratory Results - last 24 hr 06/14/16 06/14/16 06/15/16 04:25 16:30 04:50 WBC RBC Hgb Hct MCV MCH MCHC RDW Plt Count MPV Sodium 140 141 Potassium 3.9 D 3.7 Chloride 96 L 96 L Carbon Dioxide 33 34 H Anion Gap 15 15 BUN 60 H 52 H Creatinine 1.80 H 1.80 H Estimated GFR (MDRD) 28 L 28 L Glucose 89 97 Calculated Osmolality 285 285 Calcium 8.8 9.1 Bzg-M-Stydscduymr Pept 5870 H 06/15/16 04:50 WBC 12.4 H RBC 4.27 Hgb 11.3 L Hct 33.9 L MCV 79 L MCH 26.4 L MCHC 33.3 RDW 16.2 H Plt Count 269 MPV 8.0 Sodium Potassium Chloride Carbon Dioxide Anion Gap BUN Creatinine Estimated GFR (MDRD) Glucose Calculated Osmolality Calcium Avf-X-Fhrkczpejjz Pept O2 Device: Nasal Cannula Diet at Discharge: Cardiac, Heart Healthy Activity: As Tolerated Discontinue use of:: Alcohol, All Types of Tobacco - DC Summary Notes Hospital Course Note:: Discharge summary on patient named WANDA SANCHEZ admitted to [facility] on 06/12/16 by Arthur Ceja MD. Date of discharge is []. CC: [facility] Primary care Dr. Hudson in [facility] Total Time: 41 min Code: 33831 (>30min.) - Physical Exam Vital Signs: Last Vital Signs Temp 98 F 06/15/16 08:08 Pulse 75 06/15/16 08:08 Resp 20 06/15/16 08:08 BP 179/78 06/15/16 08:08 Pulse Ox 93 06/15/16 08:39 Oxygen Pulse Oxygen Saturation 93 O2 Device Nasal Cannula Oxygen Flow Rate 1 Fraction of Inspired Oxygen ( 30 FIO2) Constitutional: No apparent distress, Alert Oriented to: Time, Person, Place - HEENT Head: Normal ( normocephalic) Eye: Normal (PERRL, EOMI, Sclera white) Oropharynx: Normal (Pharynx:Moist without exudate,Gums-no swelling) Tympanic Membrane: Normal ENT EAC: Normal (No oropharyngeal lesions or erythema. Mucous membranes are dry. ) Nose: No Symptoms Reported (septum midline) - Respiratory/Cardiovascular Respiratory: Diminished, Tachypnea, Wheezes - GI Auscultation: Normal (NABS) Palpation: Normal (Soft,No rebound or guarding, non distended) Tenderness: Non tender Chaudhry's Sign: Negative Rectal Exam: Deferred - Musculoskeletal Back: Normal (Non-Tender) Extremities: Normal (Normal tone, Pulses 2+ No cyanosis or edema, FROM) - Integumentary Skin: Normal (Warm dry no rashes) Lymphatics: Normal (no adenopathy) - Neurologic Memory Impaired: Normal Motor Function: Normal (Motor 5/5 throughout.Normal tone, Pulses 2+ No cyanosis or edema, FROM) Cranial Nerve: Normal (CN II-XII intact sensation, strength 5/5) Cerebellar: Normal Mood Description: Normal Perception: Normal
[2016-06-15] MEDS: PROBIOTIC BLEND TAB PO SCH ×2 (11:17→16:58)
--- NOTE | 2016-06-15 11:20 | GENMEDPROG ---
Chief Complaint: Said she had a rough night and indicates she feels too ill to go home. She is also concerned about her 1 kidney. Notes Reviewed: Yes Events from last night noted and discussed with Clinical Staff Current Medication List: Reviewed Currently: Reports: DELBERT FISH DVT Prophylaxis: Yes - Physical Examination Vital Signs and I&O: Last Vital Signs Temp 98 F 06/15/16 08:08 Pulse 64 06/15/16 10:14 Resp 20 06/15/16 08:08 BP 179/78 06/15/16 08:08 Pulse Ox 93 06/15/16 08:39 Oxygen Pulse Oxygen Saturation 93 O2 Device Nasal Cannula Oxygen Flow Rate 1 Fraction of Inspired Oxygen ( 30 FIO2) Intake & Output 06/12/16 06/13/16 06/14/16 06/15/16 23:59 23:59 23:59 23:59 Intake Total 799 048 4643 120 Output Total 3575 2950 Balance 350 -1676 -9246 120 Patient's weight 88.541 kg 88.405 kg 88.479 kg 87.906 kg General: Alert, Oriented x3, No acute distress, Well appearing, Well nourished HEENT: Normal (Normocephalic, atraumatic;EOMI.Sclera white, Nares patent, without discharge or bleeding. No oropharyngeal lesions or erythema. Mucous membranes are dry.) Neck: Non-tender, Full range of motion, Normal Trachea alignment, Normal inspection (No cervical lymphadenopathy. No supraclavicular lymphadenopathy.), No Masses palpable, Supple Lymphatics: Normal (no adenopathy) Respiratory: Diminished, Tachypnea, Wheezes Cardiovascular: Regular rate and rhythm (No bradycardia or tachycardia), Normal S1, No Gallops,Rubs/Murmurs, Normal S2, Good Pedal Pulses (DP pulses 2+ bilaterally) GI: Normal bowel sounds (normal active sounds), Soft (non-distended), Non tender , No hepatospenomegaly, No masses Extremities/Musculoskeletal: Normal pulses (DP pulses 2+ bilaterally) Skin: Warm,Dry and Intact, No rashes, No significant lesion Neurological: Normal tone, Cranial nerves 3-12 NL ( 2-12 grossly intact.). negative: Strength at 5/5 X4 ext Psych/Mental Status: Appropriate, Normal Affect Lab/DI/Studies Reviewed: 06/15/16 04:50 06/15/16 04:50 Laboratory Results - last 24 hr 06/15/16 06/15/16 04:50 04:50 WBC 12.4 H RBC 4.27 Hgb 11.3 L Hct 33.9 L MCV 79 L MCH 26.4 L MCHC 33.3 RDW 16.2 H Plt Count 269 MPV 8.0 Sodium 141 Potassium 3.7 Chloride 96 L Carbon Dioxide 34 H Anion Gap 15 BUN 52 H Creatinine 1.80 H Estimated GFR (MDRD) 28 L Glucose 97 Calculated Osmolality 285 Calcium 9.1 - Assessment (1) Acute exacerbation of CHF (congestive heart failure) Acute I50.9 - HEART FAILURE, UNSPECIFIED Qualifiers: Congestive heart failure type: diastolic Qualified Code(s): I50.33 - Acute on chronic diastolic (congestive) heart failure Comment/Plan: Patient denies prior CHF diagnosis. She was significantly hypoxic. Doing well on BiPAP now. Aggressive IV diuresis, low-sodium diet. CHF teaching. Echo showed ejection fraction 68% with still grade 3 diastolic dysfunction. Continue aspirin, home beta-kaylan and start statin. Diuresed almost 5l fluid since admission. Increase Lasix 80 mg p.o. twice daily. (2) CKD (chronic kidney disease) Acute N18.9 - CHRONIC KIDNEY DISEASE, UNSPECIFIED Qualifiers: Chronic kidney disease stage: stage 3 (moderate) Qualified Code(s): N18.3 - Chronic kidney disease, stage 3 (moderate) Comment/Plan: has only 1 kidney that works cr 1.8. (3) Pneumonia Acute J18.9 - PNEUMONIA, UNSPECIFIED ORGANISM Qualifiers: Pneumonia type: due to unspecified organism Laterality: right Lung location: lower lobe of lung Qualified Code(s): J18.1 - Lobar pneumonia, unspecified organism Comment/Plan: Lower lobe infiltrate seen on CT scan in the ER. Treated empirically with IV Rocephin and azithromycin for community-acquired pneumonia. Pneumonia evidence based care order set has been utilized, supplemental O2 per respiratory therapy. (4) Respiratory failure with hypoxia Acute J96.91 - RESPIRATORY FAILURE, UNSPECIFIED WITH HYPOXIA Qualifiers: Chronicity: acute Qualified Code(s): J96.01 - Acute respiratory failure with hypoxia Comment/Plan: Due to pneumonia and CHF. (5) Tobacco abuse Acute Z72.0 - TOBACCO USE Comment/Plan: quit smoking X 1 month (6) Uncontrolled hypertension Acute I10 - ESSENTIAL (PRIMARY) HYPERTENSION Comment/Plan: Acute on chronic exacerbation her hypertension adding hydralazine 10 mg p.o. t.i.d. to Isordil for improved blood pressure control and treatment of her LVH diastolic CHF. Case Care Discussed with: Patient, Nursing Staff Education/Counseling Given To: Patient Education/Counseling Given Regarding: Diagnosis, Treatment Total Time: 38 min Critical Care: No Code: 25008 (12+)
[2016-06-15] MEDS: hydrALAZINE 20 MG/ML VIAL IV PRN (16:56)
[2016-06-15] MEDS: ENOXAPARIN 40 MG/0.4 ML PFS SQ SCH (16:58)
[2016-06-15] MEDS: CEFTRIAXONE 1 GM in D5W 100 ML IV SCH (16:58)
[2016-06-15] MEDS: ONDANSETRON HCL 4 MG/2 ML VIAL IV PRN (18:40)
[2016-06-15] MEDS: AZITHROMYCIN 500 MG in D5W 250 ML IV SCH (19:41)
[2016-06-15] MEDS: ATORVASTATIN 40 MG TAB PO SCH (20:02)
[2016-06-15] MEDS: AMLODIPINE 10 MG TAB PO SCH (20:02)
[2016-06-15] MEDS: ASPIRIN 325 MG TAB PO SCH (20:02)
[2016-06-15] MEDS: CARVEDILOL 12.5 MG TAB PO SCH (20:02)
[2016-06-15] MEDS ORDERED: CARVEDILOL 6.25 MG TAB PO SCH (21:00)
[2016-06-15] MEDS: ISOSORBIDE DINITRATE 10 MG TAB PO SCH (22:05)
[2016-06-15] MEDS: hydrALAZINE 25 MG TAB PO SCH (22:05)
[2016-06-16 04:40] LABS: MPV 7.9 fL (7.4-10.4)
[2016-06-16 04:47] LABS: BLOOD UREA NITROGEN 46 MG/DL (7-17); CALCIUM 8.9 MG/DL (8.4-10.2); CALCULATED OSMOLALITY 274 MOs/Kg (270-290); CHLORIDE 89 mEq/L (98-107); GLUCOSE 101 MG/DL (70-99); SODIUM LEVEL 136 mEq/L (137-146)
[2016-06-16] MEDS: ISOSORBIDE DINITRATE 10 MG TAB PO SCH ×3 (05:01→20:34)
[2016-06-16] MEDS: hydrALAZINE 25 MG TAB PO SCH ×3 (05:01→20:34)
[2016-06-16] MEDS: CARVEDILOL 12.5 MG TAB PO SCH ×2 (08:29→20:34)
[2016-06-16] MEDS: FUROSEMIDE 80 MG TAB PO SCH ×2 (08:29→14:16)
[2016-06-16] MEDS: PROBIOTIC BLEND TAB PO SCH ×2 (08:29→14:16)
[2016-06-16] MEDS: SPIRONOLACTONE 25 MG TAB PO SCH (08:29)
[2016-06-16] MEDS: LEVOTHYROXINE 50 MCG (0.05 MG) TAB PO SCH (08:29)
[2016-06-16] MEDS: CEFTRIAXONE 1 GM in D5W 100 ML IV SCH (09:31)
[2016-06-16] MEDS: POTASSIUM CHLORIDE 20 MEQ TAB PO SCH ×3 (09:31→14:16)
--- NOTE | 2016-06-16 09:48 | GENMEDPROG ---
Chief Complaint: States she is feeling very weak today mild shortness breath and I advised her potassium is 3.1 needing supplementation. Notes Reviewed: Yes Events from last night noted and discussed with Clinical Staff Current Medication List: Reviewed Currently: Reports: DELBERT FISH DVT Prophylaxis: Yes - Physical Examination Vital Signs and I&O: Last Vital Signs Temp 98.1 F 06/16/16 07:49 Pulse 76 06/16/16 07:49 Resp 17 06/16/16 07:49 BP 186/58 H 06/16/16 07:49 Pulse Ox 94 06/16/16 08:00 Oxygen Pulse Oxygen Saturation 94 O2 Device Room Air Oxygen Flow Rate 1 Fraction of Inspired Oxygen ( 30 FIO2) Intake & Output 06/13/16 06/14/16 06/15/16 06/16/16 23:59 23:59 23:59 23:59 Intake Total 720 0498 608 5856 Output Total 3575 2950 300 Balance -9055 -2622 480 754 Patient's weight 88.405 kg 88.479 kg 87.906 kg 85.321 kg General: Alert, Oriented x3, No acute distress, Well appearing, Well nourished HEENT: Normal (Normocephalic, atraumatic;EOMI.Sclera white, Nares patent, without discharge or bleeding. No oropharyngeal lesions or erythema. Mucous membranes are dry.) Neck: Non-tender, Full range of motion, Normal Trachea alignment, Normal inspection (No cervical lymphadenopathy. No supraclavicular lymphadenopathy.), No Masses palpable, Supple Lymphatics: Normal (no adenopathy) Respiratory: Diminished. negative: Rales, Rhonchi, Wheezes Cardiovascular: Regular rate and rhythm (No bradycardia or tachycardia), Normal S1, No Gallops,Rubs/Murmurs, Normal S2, Good Pedal Pulses (DP pulses 2+ bilaterally) GI: Normal bowel sounds (normal active sounds), Soft (non-distended), Non tender , No hepatospenomegaly, No masses Extremities/Musculoskeletal: Normal pulses (DP pulses 2+ bilaterally) Skin: Warm,Dry and Intact, No rashes, No significant lesion Neurological: Normal tone, Cranial nerves 3-12 NL ( 2-12 grossly intact.). negative: Strength at 5/5 X4 ext Psych/Mental Status: Appropriate, Normal Affect Lab/DI/Studies Reviewed: 06/16/16 03:56 06/16/16 03:56 Laboratory Results - last 24 hr 06/16/16 06/16/16 03:56 03:56 WBC 11.7 H RBC 4.09 L Hgb 10.8 L Hct 32.5 L MCV 79 L MCH 26.4 L MCHC 33.3 RDW 16.2 H Plt Count 228 MPV 7.9 Sodium 136 L Potassium 3.1 L Chloride 89 L Carbon Dioxide 36 H Anion Gap 14 BUN 46 H Creatinine 1.60 H Estimated GFR (MDRD) 32 L Glucose 101 H Calculated Osmolality 274 Calcium 8.9 - Assessment (1) Acute exacerbation of CHF (congestive heart failure) Acute I50.9 - HEART FAILURE, UNSPECIFIED Qualifiers: Congestive heart failure type: diastolic Qualified Code(s): I50.33 - Acute on chronic diastolic (congestive) heart failure Comment/Plan: Patient denies prior CHF diagnosis. She was significantly hypoxic. Doing well on BiPAP now. Aggressive IV diuresis, low-sodium diet. CHF teaching. Echo showed ejection fraction 68% with grade 3 diastolic dysfunction. Continue aspirin, home beta-kaylan and start statin. Diuresed almost 5l fluid since admission. Getting Lasix 80 mg p.o. twice daily. (2) CKD (chronic kidney disease) Acute N18.9 - CHRONIC KIDNEY DISEASE, UNSPECIFIED Qualifiers: Chronic kidney disease stage: stage 3 (moderate) Qualified Code(s): N18.3 - Chronic kidney disease, stage 3 (moderate) Comment/Plan: has only 1 kidney that works cr 1.6. (3) Pneumonia Acute J18.9 - PNEUMONIA, UNSPECIFIED ORGANISM Qualifiers: Pneumonia type: due to unspecified organism Laterality: right Lung location: lower lobe of lung Qualified Code(s): J18.1 - Lobar pneumonia, unspecified organism Comment/Plan: Lower lobe infiltrate seen on CT scan in the ER. Treated empirically with IV Rocephin and azithromycin for community-acquired pneumonia. Pneumonia evidence based care order set has been utilized, supplemental O2 per respiratory therapy. (4) Respiratory failure with hypoxia Acute J96.91 - RESPIRATORY FAILURE, UNSPECIFIED WITH HYPOXIA Qualifiers: Chronicity: acute Qualified Code(s): J96.01 - Acute respiratory failure with hypoxia Comment/Plan: Due to pneumonia and CHF. (5) Tobacco abuse Acute Z72.0 - TOBACCO USE Comment/Plan: quit smoking X 1 month (6) Uncontrolled hypertension Acute I10 - ESSENTIAL (PRIMARY) HYPERTENSION Comment/Plan: Acute on chronic exacerbation her hypertension adding hydralazine 25 mg p.o. t.i.d. to Isordil for improved blood pressure control and treatment of her LVH diastolic CHF. (7) Hypokalemia Acute E87.6 - HYPOKALEMIA Comment/Plan: supplement po k Case Care Discussed with: Patient, Nursing Staff Education/Counseling Given To: Patient Education/Counseling Given Regarding: Diagnosis, Treatment Total Time: 38 min Critical Care: No Code: 45385 (12+)
[2016-06-16] MEDS ORDERED: Magnesium Sulfate 2 gm/D5W 2 GM/50 ML RTU IV ONE (09:49)
[2016-06-16] MEDS: ENOXAPARIN 40 MG/0.4 ML PFS SQ SCH (17:10)
[2016-06-16 19:56] LABS: BLOOD UREA NITROGEN 41 MG/DL (7-17); CALCIUM 9.2 MG/DL (8.4-10.2); CALCULATED OSMOLALITY 270 MOs/Kg (270-290); CHLORIDE 88 mEq/L (98-107); GLUCOSE 140 MG/DL (70-99); SODIUM LEVEL 134 mEq/L (137-146)
[2016-06-16] MEDS: AZITHROMYCIN 500 MG in D5W 250 ML IV SCH (20:24)
[2016-06-16] MEDS: ONDANSETRON HCL 4 MG/2 ML VIAL IV PRN (20:27)
[2016-06-16] MEDS: ASPIRIN 325 MG TAB PO SCH (20:34)
[2016-06-16] MEDS: AMLODIPINE 10 MG TAB PO SCH (20:34)
[2016-06-16] MEDS: ATORVASTATIN 40 MG TAB PO SCH (20:34)
[2016-06-17 04:43] VITALS: BMI 34.0
[2016-06-17 05:02] LABS: MPV 8.3 fL (7.4-10.4)
[2016-06-17 05:13] LABS: BLOOD UREA NITROGEN 39 MG/DL (7-17); CALCIUM 8.9 MG/DL (8.4-10.2); CHLORIDE 87 mEq/L (98-107); SODIUM LEVEL 134 mEq/L (137-146)
[2016-06-17 05:28] LABS: CALCULATED OSMOLALITY 267 MOs/Kg (270-290); GLUCOSE 94 MG/DL (70-99)
[2016-06-17] MEDS: hydrALAZINE 25 MG TAB PO SCH (05:45)
[2016-06-17] MEDS: ISOSORBIDE DINITRATE 10 MG TAB PO SCH (05:45)
[2016-06-17 08:04] VITALS: TEMP 98.3
[2016-06-17 08:12] VITALS: PULSE 64
[2016-06-17] MEDS: FUROSEMIDE 80 MG TAB PO SCH (08:12)
[2016-06-17] MEDS: SPIRONOLACTONE 25 MG TAB PO SCH (08:12)
[2016-06-17] MEDS: LEVOTHYROXINE 50 MCG (0.05 MG) TAB PO SCH (08:13)
[2016-06-17] MEDS: CARVEDILOL 12.5 MG TAB PO SCH (08:13)
[2016-06-17] MEDS: CEFTRIAXONE 1 GM in D5W 100 ML IV SCH (08:13)
[2016-06-17] MEDS: hydrALAZINE 20 MG/ML VIAL IV PRN (08:14)
--- NOTE | 2016-06-17 09:56 | PCM.DCS92 ---
- Final/Secondary Discharge Diagnosis (1) Acute exacerbation of CHF (congestive heart failure) Acute I50.9 - HEART FAILURE, UNSPECIFIED diastolic I50.33 - Acute on chronic diastolic (congestive) heart failure Comment: Overall much improved. Stable the last several days but unable to go home due to severe Blizzard. Now feeling better and stable for discharge. Diuresed approximately 5 L this hospitalization. Echo with EF of 68% but diastolic dysfunction. (2) CKD (chronic kidney disease) Acute N18.9 - CHRONIC KIDNEY DISEASE, UNSPECIFIED stage 3 (moderate) N18.3 - Chronic kidney disease, stage 3 (moderate) Comment: Creatinine has stabilized. (3) Hypokalemia Acute E87.6 - HYPOKALEMIA Present on Admission: Yes Comment: Repleted (4) Pneumonia Acute J18.9 - PNEUMONIA, UNSPECIFIED ORGANISM due to unspecified organism right lower lobe of lung J18.1 - Lobar pneumonia, unspecified organism Comment: Much improved respiratory status. Continue antibiotics as outpatient. (5) Respiratory failure with hypoxia Acute J96.91 - RESPIRATORY FAILURE, UNSPECIFIED WITH HYPOXIA acute J96.01 - Acute respiratory failure with hypoxia Comment: Due to pneumonia and CHF. (6) Tobacco abuse Acute Z72.0 - TOBACCO USE Comment: quit smoking X 1 month (7) Uncontrolled hypertension Acute I10 - ESSENTIAL (PRIMARY) HYPERTENSION Present on Admission: Yes Comment: Acute on chronic exacerbation her hypertension adding hydralazine 25 mg p.o. t.i.d. to Isordil for improved blood pressure control and treatment of her LVH diastolic CHF. Discharge Disposition: Home Discharge Condition: Improved Cognitive Discharge Status: Unimpaired Fuctional Discharge Status: Independent Physician Follow up/Referrals: Juana Richards NP [Primary Care Provider] - 06/26/16 1:20 pm New Prescriptions: Albuterol Sulfate [Proair Respiclick] 2 puff INH QID #1 aer.[email or web address] Azithromycin [Zithromax Tri-Arjun] 500 mg PO DAILY #3 tablet Carvedilol [Coreg] 12.5 mg PO BID #60 tablet Cefdinir [Omnicef] 300 mg PO BID #10 capsule Furosemide [Lasix] 80 mg PO DAILY #30 tablet Lactobacillus Combination No.4 [Probiotic] 1 cap PO QHS #30 capsule Spironolactone [Aldactone] 25 mg PO DAILY #30 tablet Discharge Home Medication List Amlodipine [Norvasc] 10 mg PO QHS 06/12/16 [History Confirmed 06/12/16 Last Taken 06/11/16] Aspirin 325 mg PO QHS 06/12/16 [History Confirmed 06/12/16 Last Taken 06/11/16] Atorvastatin Calcium 40 mg PO QHS 06/12/16 [History Confirmed 06/12/16 Last Taken 06/11/16] Levothyroxine [Synthroid, Levoxyl] 50 mcg PO DAILY 06/12/16 [History Confirmed 06/12/16 Last Taken 06/12/16] [place]-3 Fatty Acids/Fish Oil [Fish Oil 1,000 mg Softgel] 1 cap PO QHS 06/12/16 [ History Confirmed 06/12/16 Last Taken 06/11/16] Potassium Chloride [Klor-Con M10] 10 meq PO QHS 06/12/16 [History Confirmed 08/24 Last Taken 06/11/16] Prednisone [Sterapred Ds] 10 mg PO DIR 06/12/16 [History Confirmed 06/12/16 Last Taken 06/11/16] Albuterol Sulfate [Proair Respiclick] 2 puff INH QID #1 aer.[email or web address] 06/15/16 [Rx Last Taken Unknown] Azithromycin [Zithromax Tri-Arjun] 500 mg PO DAILY #3 tablet 06/15/16 [Rx Last Taken Unknown] Carvedilol [Coreg] 12.5 mg PO BID #60 tablet 06/15/16 [Rx Last Taken Unknown] Cefdinir [Omnicef] 300 mg PO BID #10 capsule 06/15/16 [Rx Last Taken Unknown] Furosemide [Lasix] 80 mg PO DAILY #30 tablet 06/15/16 [Rx Last Taken Unknown] Lactobacillus Combination No.4 [Probiotic] 1 cap PO QHS #30 capsule 06/15/16 [ Rx Last Taken Unknown] Spironolactone [Aldactone] 25 mg PO DAILY #30 tablet 06/15/16 [Rx Last Taken Unknown] O2 Device: Room Air Diet at Discharge: Heart Healthy Activity: As Tolerated Call Office For: Worsening Symptoms - DC Summary Notes Hospital Course Note:: Discharge summary on patient named WANDA SANCHEZ admitted to [facility] on 06/12/16 by Arthur Ceja MD. Date of discharge is []. Ms Wheeler is a pleasant 65-year-old white female with a history of coronary artery disease who presented to the hospital with increasing shortness of breath. Symptoms have been progressive over the course of 4 days. She had been seen at urgent care and prescribed antibiotics but did not have significant relief. She has also noticed increasing lower extremity edema. She was admitted to the hospital the diagnosis of CHF. CT scan also revealed a right lower lobe pneumonia. She was started on IV antibiotics and IV Lasix. A 2D echo was performed which showed a preserved EF of 68% but did show diastolic dysfunction. She was diuresed approximately 5 L during her course of her hospitalization and has improved significantly last several days she has been breathing better and is much more comfortable. Attempted to discharge her home 1-2 days ago however we suffered a severe Blizzard here which is limited transportation. Overall she is much improved and she feels better and is stable for discharge home Total Time: 45 minutes - Physical Exam Vital Signs: Last Vital Signs Temp 98.3 F 06/17/16 08:00 Pulse 64 06/17/16 08:11 Resp 18 06/17/16 08:00 BP 176/72 06/17/16 08:00 Pulse Ox 93 06/17/16 08:00 Oxygen Pulse Oxygen Saturation 93 O2 Device Room Air Oxygen Flow Rate 2 Fraction of Inspired Oxygen ( 30 FIO2) Constitutional: No apparent distress, Alert, Well nourished, Well appearing Oriented to: Time, Person, Place - HEENT Head: Normal ( normocephalic) Eye: Normal (PERRL, EOMI, Sclera white) Oropharynx: Normal (Pharynx:Moist without exudate,Gums-no swelling) Tympanic Membrane: Normal Nose: No Symptoms Reported (septum midline) - Respiratory/Cardiovascular Respiratory: Diminished. negative: Rales, Rhonchi, Wheezes Cardiovascular: Normal - GI Auscultation: Normal (NABS) Palpation: Normal (Soft,No rebound or guarding, non distended) Tenderness: Non tender Chaudhry's Sign: Negative Rectal Exam: Deferred - Musculoskeletal Back: Normal (Non-Tender) Extremities: Normal (Normal tone, Pulses 2+ No cyanosis or edema, FROM) - Integumentary Skin: Warm, Dry Lymphatics: Normal (no adenopathy) - Neurologic Memory Impaired: Normal Motor Function: Normal Cranial Nerve: Normal Cerebellar: Normal Mood Description: Normal Perception: Normal
[2016-06-17 10:16] VITALS: BP 150/68
== END 2016-06-17 12:16 | disposition home health service (06) | DRG 291 ==
LOC: ED 17:46 → PCU 21:22
PROVIDERS: ADMIT Internal Medicine; ATTEND Hospitalist
PROC: 5A09357 Assistance with Respiratory Ventilation, Less than 24 Consecutive Hours, Continuous Positive Airway Pressure (ICD-10-PCS; principal; 2016-06-12)
PROC: 039C3ZZ Drainage of Left Radial Artery, Percutaneous Approach (ICD-10-PCS; 2016-06-12)
DX: I50.33 Acute on chronic diastolic (congestive) heart failure (principal); J18.1 Lobar pneumonia, unspecified organism; J96.01 Acute respiratory failure with hypoxia; I12.9 Hypertensive chronic kidney disease with stage 1 through stage 4 chronic kidney disease, or unspecified chronic kidney disease; N18.3 Chronic kidney disease, stage 3 (moderate); E87.6 Hypokalemia; Z87.891 Personal history of nicotine dependence; E78.00 Pure hypercholesterolemia, unspecified; I25.10 Atherosclerotic heart disease of native coronary artery without angina pectoris; Z79.82 Long term (current) use of aspirin; Z79.899 Other long term (current) drug therapy
CPT/HCPCS: 36415; 36600; 71020; 71250; 80048; 80053; 80061; 81001; 82550; 82803; 83605; 83735; 83880; 84484; 85025; 85027; 85610; 85651; 85730; 87040; 93005; 93306; 94640; 94660; 96365; 96366; 96372; 96375; 97162; 98960; 99285; J0360; J0456; J0696; J1650; J1940; J2405; J2930; J3480; J3490; J7060; J7070; J7620